=== PATIENT | male | born 2005 | race Caucasian/White ===

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

== ENCOUNTER → 2023-11-05 09:11 | Outpatient (CLI) | payer SELFPAY ==
--- NOTE | 2023-11-05 | DI.RAD_ITS ---
Exam(s) XR SHOULDER RT COMPLETE 2+V EXAM: XR SHOULDER RT COMPLETE 2+V CLINICAL HISTORY: H/O DISLOCATED SHOULDER,Z87.828,SELF REDUCTION,? JOINT ABNORMALITY,FX OR. TECHNIQUE: 2D digital imaging was performed. Five views. COMPARISON: No exams were available for comparison FINDINGS: BONES: No acute fracture is present. No bony destructive lesion is seen. JOINTS: No dislocation present. SOFT TISSUE: Normal. IMPRESSION: Unremarkable radiographs of the right shoulder. DATA REPOSITORY: RADIATION DOSE DELIVERED:
--- NOTE | 2023-11-05 18:37 | DI.VRAD_ITS ---
PROCEDURE INFORMATION: Exam: XR Right Shoulder Exam date and time: 11/05/2023 5:29 PM Age: 18 years old Clinical indication: Injury or trauma; Other: H/o dislocated shoulder, z87.828, self reduction, ? joint abnormality, FX or sepration TECHNIQUE: Imaging protocol: Radiologic exam of the right shoulder. Views: 2 or more views. COMPARISON: No relevant prior studies available. FINDINGS: Bones/joints: Osseous alignment is normal. No acute fracture. No significant arthritic change. Soft tissues: Normal. IMPRESSION: Negative right shoulder Dictated and Authenticated by: Eduardo Ca MD. Ordering:P.Darryl'BREE Huerta MD
== END ==
PROVIDERS: Visit Provider Physician Assistant
DX: M25.511 Pain in right shoulder (principal)
CPT/HCPCS: 73030